=== PATIENT | female | born 2000 | race Caucasian/White ===

== ENCOUNTER 2025-07-23 13:46 | Emergency (ER) | payer BC, SELFPAY ==
[2025-07-23 14:13] VITALS: BP 122/76; PULSE 80; RESP 18; TEMP 37.2; O2SAT 99; BMI 21.6
--- NOTE | 2025-07-23 14:19 | DI.RAD.S_ITS ---
PROCEDURE: XR FOOT LT MIN 3V INDICATIONS: left TECHNIQUE: 3 views of the foot were acquired. COMPARISON: None. FINDINGS: Bones: No fractures or dislocations. No suspicious bony lesions. Bipartite hallux sesamoid Soft tissues: No tibiotalar joint effusion. Achilles tendon appears normal. IMPRESSION: No acute bony abnormality. Dictated by: Cullen Regan M.D. on 07/23/2025 at 13:58 Approved by: Cullen Regan M.D. on 07/23/2025 at 13:59
--- NOTE | 2025-07-23 15:44 | ED.ANIMALBIT ---
HPI - Animal Bite General Chief Complaint: Animal Bite Stated Complaint: dog bite lt foot Time Seen by Provider: 07/23/25 14:19 Source: patient Mode of arrival: Ambulatory Related Data Previous Rx's ?Medication ?Instructions ?Recorded amoxicillin 875 mg-potassium 1 tab PO BID #14 tabs 07/23/25 clavulanate 125 mg tablet hydrocodone 5 mg-acetaminophen 325 1 tab PO Q4-6H PRN pain #20 tabs 07/23/25 mg tablet Allergies Allergy/AdvReac Type Severity Reaction Status Date / Time No Known Drug Allergies Allergy Verified 07/23/25 14:19 Patient History Smoking Status: Never smoker Exam Initial Vital Signs Initial Vital Signs: Vital Signs Temperature 98.9 F 07/23/25 14:13 Pulse Rate 80 07/23/25 14:13 Respiratory Rate 18 07/23/25 14:13 Blood Pressure 122/76 07/23/25 14:13 Pulse Oximetry 99 07/23/25 14:13 Oxygen Delivery Method Room Air 07/23/25 14:13 Procedures Laceration Repair Laceration 1: Site: lower extremity Side (If applicable): left Size (cm): 2.0 Description: linear Local Anesthetic: lidocaine 1% and with epi Amount of anesthesia used (mL): 3 Pre-repair: wound explored, irrigated extensively and deep structures intact Skin layer closed with: nylon Skin layer suture size: 4-0 Number of sutures: 6 Technique: simple, interrupted Course Orders Ordered: ED Orders 07/23/25 14:19 XR foot LT min 3V Stat Vital Signs Vital signs: Vital Signs - 8 hr 07/23/25 14:13 Temperature 98.9 F Pulse Rate 80 Respiratory Rate 18 Blood Pressure 122/76 Pulse Oximetry 99 Oxygen Delivery Method Room Air MDM - Animal Bite Imaging Data Extremity x-ray #1: Radiologist's Impression: [address] [address] XRay Report Signed Patient: Candida Weaver MR#: [id number] : 2000 Acct:[id number] Age/Sex: 24 / F Date of Service: 07/23/25 Loc: ED Accession Number: [id number] Procedure: XR foot LT min 3V Ordering Provider: Rocky Clark D.O. PROCEDURE: XR FOOT LT MIN 3V INDICATIONS: left TECHNIQUE: 3 views of the foot were acquired. COMPARISON: None. FINDINGS: Bones: No fractures or dislocations. No suspicious bony lesions. Bipartite hallux sesamoid Soft tissues: No tibiotalar joint effusion. Achilles tendon appears normal. IMPRESSION: No acute bony abnormality. Dictated by: Cullen Regan M.D. on 07/23/2025 at 13:58 Approved by: Cullen Regan M.D. on 07/23/2025 at 13:59 [facility] Narrative Medical decision making narrative: All lab work, vital signs, nurse triage note, medication list, previous ER visits, and all imaging studies reviewed. X-ray showed no acute process. Patient given tetanus, wound irrigated extensively, 6 stitches using 5 0 nylon placed. Augmentin given here DC home on Augmentin prescription. Differential diagnosis dog bite, cellulitis, foreign body, tetanus. Suture removal in 10-14 days with PCP. Discharge Plan Departure Patient Disposition: Home Clinical Impression: Dog bite Instructions: DI for Dog Bite Activity Restrictions/Additional Instructions: Return with new or worsening symptoms. Take your medicines as directed. Follow up with PCP in 10-14 days for suture removal. Prescriptions: New amoxicillin-pot clavulanate 875-125 mg tablet 1 tab PO BID Qty: 14 0RF hydrocodone-acetaminophen 5-325 mg tablet 1 tab PO Q4-6H PRN (Reason: pain) Qty: 20 0RF Referrals: Miscellaneous,Doctor, [Primary Care Provider, Medical] Stand Alone Forms: Patient Portal/API
[2025-07-23] MEDS: LIDOCAINE 1% W/EPI 10ML 4 ML INJ (16:20)
[2025-07-23] MEDS: TET,DIPH,PERTUSS(ACELL),VAC/PF 0.5 ML SYRINGE IM (16:21)
--- NOTE | 2025-07-23 16:30 | PC.NURSE ---
lacs noted between digits of right foot not currently bleeding
[2025-07-23] MEDS: BACITRACIN OINT 0.9 GM PCKT 1 APPLIC TOP (18:11)
[2025-07-23] MEDS: AMOXICILLIN/CLAV 875/125 MG 1 TAB PO (18:11)
== END 2025-07-23 18:31 | disposition home or self-care (01) ==
PROVIDERS: Emergency Provider Family Medicine
DX: S91.352A Open bite, left foot, initial encounter (principal); W54.0XXA Bitten by dog, initial encounter; Z23 Encounter for immunization
CPT/HCPCS: 12001; 73630; 90471; 99283; 90715